=== PATIENT | female | born 1950 | race Caucasian/White ===

== ENCOUNTER 2017-11-19 09:54 | Emergency (ER) | payer OTHER ==
[2017-11-19] MEDS ORDERED: LABETALOL HCL 5 MG/ML 20 ML MDV ONE (10:18)
[2017-11-19] MEDS ORDERED: TRANEXAMIC ACID 1,000 MG/10 ML VIAL ONE (10:19)
[2017-11-19] MEDS ORDERED: SILVER NITRATE APPLICATOR 1 APPL TP ONE (10:20)
--- NOTE | 2017-11-19 10:33 | EDPHY ---
H & P Stated Complaint: non traumatic nosebleed-no thinners Time Seen by Provider: 11/19/17 10:05 HPI/ROS: CHIEF COMPLAINT: Nose bleed HISTORY OF PRESENT ILLNESS: This is a 67-year-old female, not taking anticoagulants, who presents with nose bleed. She is awakened with nose bleed for the past 3 days. They resolve spontaneously but she reports what appeared to be relatively heavy bleeding from her left nostril each day. Today she was driving for [place] when her nose again began to bleed. She packed her nose with Kleenex and came to the emergency department. She does not have a history of a bleeding diathesis, or hypertension, and has had no recent trauma to the nose or upper respiratory infection REVIEW OF SYSTEMS: A ten point review of systems was performed and is negative with the exception of the items mentioned in the HPI. Past medical history: Negative Past surgical history: Noncontributory Social history: She drives for [employer]. She lives alone. No tobacco or alcohol use. General Appearance: Alert. Vital signs reviewed. Blood pressure 159/90. Eyes: Pupils equal and round, no conjunctival injection, no discharge. Anicteric. ENT, Mouth: Spitting out blood clots, bleeding from the left nostril, unable to initially identify the involved vessel. See procedure note. Respiratory: Lungs are clear to auscultation; no wheezes, rales, or rhonchi. Cardiovascular: Regular rate and rhythm; no murmur, rub, or gallop. Gastrointestinal: Abdomen is soft and nontender, no masses or organomegaly, bowel sounds normal. Skin: Warm and dry, no rashes on exposed skin, normal color.. Extremities: No lower extremity edema, no calf tenderness or swelling. Neurological: Alert and oriented. Moving all four extremities easily and equally. Psychiatric: Normal affect. - Personal History Current Tetanus/Diphtheria Vaccine: Unsure Current Tetanus Diphtheria and Acellular Pertussis (TDAP): Unsure - Medical/Surgical History Hx Asthma: No Hx Chronic Respiratory Disease: No Hx Diabetes: No Hx Cardiac Disease: No Hx Renal Disease: No Hx Cirrhosis: No Hx Alcoholism: No Hx HIV/AIDS: No Hx Splenectomy or Spleen Trauma: No Other PMH: denies - Social History Smoking Status: Never smoked Constitutional: Initial Vital Signs Temperature (C) 37.0 C 11/19/17 10:02 Heart Rate 72 11/19/17 10:02 Respiratory Rate 18 11/19/17 10:02 Blood Pressure 159/90 H 11/19/17 10:02 O2 Sat (%) 98 11/19/17 10:02 O2 Delivery Mode Room Air Allergies/Adverse Reactions: cefaclor [From Ceclor] Allergy (Verified 11/19/17 10:01) nitrofurantoin [From Macrodantin] Allergy (Verified 11/19/17 10:01) Sulfa (Sulfonamide Antibiotics) Allergy (Verified 11/20/17 05:04) Home Medications: Medication Instructions Recorded NK [No Known Home Meds] 11/19/17 Medical Decision Making Procedures: Epistaxis control: This patient presented with left-sided epistaxis. Clamp was placed. Initially the left naris was packed with a cotton ball soaked in transaxamic acid. This remained in place for 20 min. Bleeding continued. An anterior Rhinostat was then placed but unfortunately, although it seemed like it might be controlling the bleeding, the packing came out and the bleeding resumed. The left naris then had cotton ball soaked in cocaine placed. This remained in place for 20 min. Bleeding then appeared to be controlled. Patient was observed for half an hour with no recurrence of bleeding. ED Course/Re-evaluation: Left epistaxis that appears to be anterior but I was never able to visualize the actual bleeding site. Several different attempts at epistaxis control were tried including direct pressure, TXA, anterior rhinostat (which became dislodged ), and finally cotton pledget soaked in cocaine which appeared to be effective. At no time did the patient appear to be hemodynamically unstable. She was slightly hypertensive during this visit and has been advised to have her blood pressure checked by PCP. She was given nasal clamps to use should her bleeding return. She is advised to use Afrin daily. Routine epistaxis instructions were provided. She is referred to ENT. She understands that the bleeding might return. Differential Diagnosis: I considered a differential diagnosis of epistaxis that includes but is not limited to hypertension, anticoagulant use or coagulopathy, nasal trauma, and dry air. - Data Points Medications Given: Discontinued Medications Cocaine HCl (Cocaine Hcl) 1 elyse TP EDNOW ONE Stop: 11/19/17 11:36 Last Admin: 11/19/17 11:48 Dose: Not Given Departure - Departure Disposition: Home, Routine, Self-Care Clinical Impression: Acute anterior epistaxis Condition: Good Instructions: Nosebleed (ED) Additional Instructions: If your nose starts to bleed again you should apply the clamp immediately. If the bleeding does not stop you will need to return to the emergency department. I am referring you to Dr. Bill Manning, grain origination specialist. You should call his office today and tell him that you were in the emergency department for 3 hr with a nose bleed that finally was controlled. Arrange to be seen in their office. Referrals: NONE *PRIMARY CARE P,. [Primary Care Provider] - As per Instructions Johann Manning MD [Medical Doctor] - As per Instructions
[2017-11-19] MEDS ORDERED: COCAINE HCL 4% 4 ML BTL TP ONE ×2 (10:56→11:35)
[2017-11-19 13:35] VITALS: BP 122/76
== END 2017-11-19 13:34 | disposition home or self-care (01) ==
PROC: 2Y41X5Z Packing of Nasal Region using Packing Material (ICD-10-PCS; principal; 2017-11-19)
DX: R04.0 Epistaxis (principal)

== ENCOUNTER 2017-11-20 04:52 | Emergency (ER) | payer OTHER ==
--- NOTE | 2017-11-20 05:27 | EDPHY ---
H & P Stated Complaint: RECURRING NOSE BLEED, WAS HERE YESTERDAY Time Seen by Provider: 11/20/17 05:27 HPI/ROS: HPI CHIEF COMPLAINT: Epistaxis, here yesterday HISTORY OF PRESENT ILLNESS: Patient is 67-year-old female, presents emergency with epistaxis at the left Wil[place]. She was seen here yesterday and had a packing placed. She had hemostasis of her epistaxis yesterday. She went home. At 3: 30 a.m. This morning she woke up with a recurrence of epistaxis fall in the shower out of her left Wilburn. No bleeding out of her right Wilburn. Denies any chest pain or shortness of breath denies lightheadedness. Vital signs are stable. Past Medical History: Hypertension Past Surgical History: No recent surgery Social History: lives locally denies drugs alcohol tobacco.. Family History: Noncontributory ROS REVIEW OF SYSTEMS: A comprehensive 10 point review of systems is otherwise negative aside from elements mentioned in the history of present illness. Exam Constitutional appears well nontoxic triage nursing summary reviewed, vital signs reviewed, awake/alert. Eyes normal conjunctivae and sclera, EOMI, PERRLA. HENT left Wilburn appears to be an anterior bleed., posterior pharynx unremarkable for bleeding, right near normal, no bleeding. normal inspection, atraumatic, moist mucus membranes, no epistaxis, neck supple/ no meningismus, no raccoon eyes. Respiratory clear to auscultation bilaterally, normal breath sounds, no respiratory distress, no wheezing. Cardiovascular rate normal, regular rhythm, no murmur, no edema, distal pulses normal. Gastrointestinal soft, non-tender, no rebound, no guarding, normal bowel sounds, no distension, no pulsatile mass. Genitourinary no CVA tenderness. Musculoskeletal no midline vertebral tenderness, full range of motion, no calf swelling, no tenderness of extremities, no meningismus, good pulses, neurovascularly intact. Skin pink, warm, & dry, no rash, skin atraumatic. Neurologic awake, alert and oriented x 3, AAOx3, moves all 4 extremities equally, motor intact, sensory intact, CN II-XII intact, normal cerebellar, normal vision, normal speech. Psychiatric normal mood/affect. Heme/Lymph/Immune no lymphadenopathy. Differential Diagnosis: Includes but is not limited to in a particular order recurrent epistaxis. Anterior nose bleed, posterior nosebleed Medical Decision Making: Plan for this patient will have her clear nose and blow her nose. Removed clot. Will apply a 7.5 A/P rhino rocket in place. Soaked in Afrin and re-evaluate. Re-evaluation: Procedure: Epistaxis control. After verbal consent was obtained, The anterior epistaxis was identified. The patient was treated with 7.5 AP rhino rocket soaked in Afrin. Following the procedure the patient was re-examined and the bleeding was well controlled. The patient tolerated the procedure well. The procedure was performed by myself. Patient has the 7.5 AP [address] rocket in place. She tolerated this very well. It has been secured. Blown up. No complication. She has good hemostasis. 0707: Patient re-evaluated this time resting comfortably her epistaxis has completely resolved. She has a left 7.5 AP rh[address] rocket in place. Good hemostasis. Patient requesting discharge home. She understands keep the rhino rocket in 24 hr. She understands to return emergency room to have her rhino rocket removed in reassessed. Will give her limited supply of [place]. [place] for acute pain control. Take- home pack provided. Return precautions discussed. She understands return emergency room if she has severe pain, worsening epistaxis fever questions or concerns otherwise I will re -evaluate her tonight when she returns for rhino rocket removal. Source: Patient - Personal History Current Tetanus Diphtheria and Acellular Pertussis (TDAP): Unsure - Medical/Surgical History Hx Asthma: No Hx Chronic Respiratory Disease: No Hx Diabetes: No Hx Cardiac Disease: No Hx Renal Disease: No Hx Cirrhosis: No Hx Alcoholism: No Hx HIV/AIDS: No Hx Splenectomy or Spleen Trauma: No Other PMH: HYST, , R LEG SX, FOOT SX, CATARACT SX - Social History Smoking Status: Never smoked Constitutional: Initial Vital Signs Temperature (C) 36.6 C 11/20/17 05:04 Heart Rate 81 11/20/17 05:04 Respiratory Rate 16 11/20/17 05:04 Blood Pressure 153/82 H 11/20/17 05:04 O2 Sat (%) 94 11/20/17 05:04 O2 Delivery Mode Room Air Allergies/Adverse Reactions: cefaclor [From [facility]] Allergy (Verified 11/19/17 10:01) nitrofurantoin [From Macrodantin] Allergy (Verified 11/19/17 10:01) Sulfa (Sulfonamide Antibiotics) Allergy (Verified 11/20/17 05:04) Home Medications: Medication Instructions Recorded NK [No Known Home Meds] 11/19/17 Medical Decision Making - Data Points Medications Given: Discontinued Medications Hydrocodone Bitart/Acetaminophen ([place] 5/325) 1 tab PO EDNOW ONE Stop: 11/20/17 06:03 Last Admin: 11/20/17 06:04 Dose: 1 tab Hydrocodone Bitart/Acetaminophen ([place] 5/325mg Prepack#6) 1 btl TAKEHOME EDNOW ONE Stop: 11/20/17 07:09 Last Admin: 11/20/17 07:13 Dose: 1 btl Oxymetazoline HCl (Afrin Nasal [place]) 2 sprays EACHNARE EDNOW ONE Stop: 11/20/17 05:34 Last Admin: 11/20/17 05:35 Dose: Not Given Departure - Departure Disposition: Home, Routine, Self-Care Clinical Impression: Epistaxis Condition: Good Instructions: Hydrocodone/Acetaminophen (By mouth), Nosebleed (ED) Additional Instructions: 1. Follow up with ENT. 2. Return to the emergency room in 24 hr to have her packing removed. 3. Return to the emergency room if you continue have further bleeding severe pain or questions or concerns. Referrals: NONE *PRIMARY CARE P,. [Primary Care Provider] - As per Instructions Johann Manning MD [Medical Doctor] - As per Instructions
[2017-11-20] MEDS ORDERED: OXYMETAZOLINE 30 ML NASAL SPRAY ONE (05:31)
[2017-11-20] MEDS ORDERED: OXYMETAZOLINE 30 ML NASAL SPRAY EACHNARE ONE (05:33)
[2017-11-20] MEDS ORDERED: HYDROCODONE/APAP 5/325 TAB PO ONE (06:02)
[2017-11-20 06:46] VITALS: BP 174/94
[2017-11-20] MEDS ORDERED: HYDROCOD/APAP 5/325 PREPACK#6 BTL TAKEHOME ONE (07:08)
== END 2017-11-20 07:14 | disposition home or self-care (01) ==
DX: R04.0 Epistaxis (principal); I10 Essential (primary) hypertension

== ENCOUNTER 2017-11-21 02:13 | Emergency (ER) | payer OTHER ==
--- NOTE | 2017-11-21 02:15 | EDPHY ---
H & P Time Seen by Provider: 11/21/17 02:14 HPI/ROS: HPI CHIEF COMPLAINT: Nasal packing removal HISTORY OF PRESENT ILLNESS: Patient very pleasant 67-year-old female, she was seen here last night by myself for epistaxis of the left Nare. At that time she had a rhino rocket placed 7.5 AP. She tolerated this very well. She did go home with [place] for pain control. She returns late this evening for packing removal. She states she has not had any significant further bleeding. However she does state that the pain medicine has made her nauseous. She is requesting nausea medicine. And have the packing removed. Denies any abdominal pain chest pain or shortness of breath. No further bleeding. Past Medical History: Epistaxis Past Surgical History: No recent surgery Social History: Denies drugs alcohol tobacco. Family History: Noncontributory ROS REVIEW OF SYSTEMS: A comprehensive 10 point review of systems is otherwise negative aside from elements mentioned in the history of present illness. Exam Constitutional appears well nontoxic, triage nursing summary reviewed, vital signs reviewed, awake/alert. Eyes normal conjunctivae and sclera, EOMI, PERRLA. HENT left Nare 7.5 AP [address] rocket in place, normal inspection, atraumatic, moist mucus membranes, no epistaxis, neck supple/ no meningismus, no raccoon eyes. Respiratory clear to auscultation bilaterally, normal breath sounds, no respiratory distress, no wheezing. Cardiovascular rate normal, regular rhythm, no murmur, no edema, distal pulses normal. Gastrointestinal soft, non-tender, no rebound, no guarding, normal bowel sounds, no distension, no pulsatile mass. Genitourinary no CVA tenderness. Musculoskeletal no midline vertebral tenderness, full range of motion, no calf swelling, no tenderness of extremities, no meningismus, good pulses, neurovascularly intact. Skin pink, warm, & dry, no rash, skin atraumatic. Neurologic awake, alert and oriented x 3, AAOx3, moves all 4 extremities equally, motor intact, sensory intact, CN II-XII intact, normal cerebellar, normal vision, normal speech. Psychiatric normal mood/affect. Heme/Lymph/Immune no lymphadenopathy. Differential Diagnosis: Includes but is not limited to in a particular order need for removal of the packing, need for nausea medicine due to nausea from narcotic. Medical Decision Making: Plan for this patient will remove her packing and observe her to make sure she does not have recurrent epistaxis. Additionally will give her 4 mg p.o. Zofran for nausea and re-evaluate. Re-evaluation: Source: Patient - Medical/Surgical History Hx Asthma: No Hx Chronic Respiratory Disease: No Hx Diabetes: No Hx Cardiac Disease: No Hx Renal Disease: No Hx Cirrhosis: No Hx Alcoholism: No Hx HIV/AIDS: No Hx Splenectomy or Spleen Trauma: No Other PMH: HYST, , R LEG SX, FOOT SX, CATARACT SX - Social History Smoking Status: Never smoked Constitutional: Initial Vital Signs Temperature (C) 36.5 C 11/21/17 02:15 Heart Rate 89 11/21/17 02:15 Respiratory Rate 20 11/21/17 02:15 Blood Pressure 177/100 H 11/21/17 02:15 O2 Sat (%) 92 11/21/17 02:15 O2 Delivery Mode Room Air Allergies/Adverse Reactions: cefaclor [From Ceclor] Allergy (Verified 11/21/17 02:14) nitrofurantoin [From Macrodantin] Allergy (Verified 11/21/17 02:14) Sulfa (Sulfonamide Antibiotics) Allergy (Verified 11/21/17 02:14) Home Medications: Medication Instructions Recorded NK [No Known Home Meds] 11/19/17 Departure - Departure Disposition: Home, Routine, Self-Care Clinical Impression: Nausea Condition: Good Instructions: Acute Nausea and Vomiting (ED) Additional Instructions: 1. Return emergency room if you have severe vomiting or do not feel well. 2. Return if you develops another nosebleed. Referrals: NONE *PRIMARY CARE P,. [Primary Care Provider] - As per Instructions Ashish Hairston MD [Medical Doctor] - As per Instructions
[2017-11-21] MEDS ORDERED: ONDANSETRON DISINTEGRATING 4 MG TAB ONE (02:26)
[2017-11-21] MEDS ORDERED: ONDANSETRON DISINTEGRATING 4 MG TAB PO ONE (02:26)
[2017-11-21 04:24] VITALS: BP 153/88
== END 2017-11-21 04:00 | disposition home or self-care (01) ==
DX: R11.10 Vomiting, unspecified (principal)